=== PATIENT | female | born 1995 | race Asian ===

== ENCOUNTER 2019-07-10 10:11 | Inpatient (IN) | payer MEDICAID, OTHER ==
[~2019-07-10] VITALS: Ht 168.9 cm; Wt 84.2 kg
[2019-07-10] MEDS ORDERED: ESCI5SOL2 PO (11:14)
[2019-07-10] MEDS ORDERED: NAPR-1025 PO (11:14)
[2019-07-10] MEDS ORDERED: HYDR-3290 PO (11:14)
[2019-07-10] MEDS ORDERED: GABA-1181 PO (11:14)
[2019-07-10] MEDS ORDERED: NALT50TA6 PO (11:14)
[2019-07-10] MEDS ORDERED: PRAZ1 PO (11:14)
[2019-07-10] MEDS ORDERED: ESCI-8 PO (11:24)
[2019-07-10 11:34] LABS: BASOPHILS % (AUTO) 0.7 % (0.0-2.0); EOSINOPHILS % (AUTO) 1.7 % (1.0-6.0); HEMOGLOBIN 11.8 g/dL (12.0-16.0); LYMPHOCYTES # (AUTO) 1.7 K/uL (1.0-4.8); MEAN CORPUSCULAR HEMOGLOBIN 28.4 pg (26.0-34.0); MEAN CORPUSCULAR HGB CONC 33.7 G/dL (31.0-37.0); MEAN CORPUSCULAR VOLUME 84 fL (80-100); MONOCYTES # (AUTO) 0.4 K/uL (0.1-1.0); NEUTROPHILS # (AUTO) 2.9 K/uL (1.8-7.7); NEUTROPHILS % (AUTO) 55.6 % (40.0-70.0); PLATELET COUNT (AUTO) 196 K/uL (150-450); RED BLOOD CELL COUNT(AUTO) 4.15 MIL/uL (4.00-5.20)
[2019-07-10 11:42] LABS: ANION GAP 12 mmol/L (8-16); CALCIUM, TOTAL 8.6 mg/dL (8.8-10.5); CARBON DIOXIDE 24 mmol/L (22-29); CHLORIDE 103 mmol/L (98-107); CREATININE 0.85 mg/dL (0.60-1.30); GLOMERULAR FILTR. RATE CALC > 60 mL/min (>60); GLUCOSE,RANDOM 108 mg/dL (70-110); POTASSIUM 3.6 mmol/L (3.5-5.1); SODIUM SERUM 139 mmol/L (136-145); UREA NITROGEN, BLOOD 14 mg/dL (7-18)
[2019-07-10 11:48] LABS: ACETAMINOPHEN < 2 mcg/mL (10-30); ALANINE AMINOTRANSFERASE 15 U/L (12-78); ALKALINE PHOSPHATASE 71 U/L (46-116); ASPARTATE AMINOTRANSFERASE 11 U/L (15-37); BILIRUBIN,TOTAL 0.4 mg/dL (0.1-1.0); TOTAL PROTEIN, SERUM 7.2 g/dL (6.4-8.2)
[2019-07-10 11:55] LABS: AMPHET/METH SCREEN,URINE NEGATIVE (NEGATIVE); BARBITURATE SCREEN, URINE NEGATIVE (NEGATIVE); BENZODIAZEPINES SCREEN,URINE NEGATIVE (NEGATIVE); CANNABINOID SCREEN,URINE NEGATIVE (NEGATIVE); COCAINE SCREEN,URINE NEGATIVE (NEGATIVE); METHADONE SCREEN, URINE NEGATIVE (NEGATIVE); OPIATE SCREEN,URINE POSITIVE (NEGATIVE)
[2019-07-10 11:56] LABS: PHENCYCLIDINE SCREEN,URINE NEGATIVE (NEGATIVE)
[2019-07-10 12:02] LABS: SALICYLATE 1.1 mg/dL (2.8-20.0)
[2019-07-10] MEDS ORDERED: ZOLPIDEM TARTRATE 10 MG TABLET PO PRN (13:15)
[2019-07-10] MEDS ORDERED: HALOPERIDOL 5 MG TABLET PO PRN (13:15)
[2019-07-10] MEDS ORDERED: LORazepam 2 MG TABLET PO PRN (13:15)
[2019-07-10] MEDS ORDERED: PNEUMOCOCCAL VACCINE POLYVALENT 0.5 ML VIAL [PPSV23] IM ONE (17:00)
[2019-07-10] MEDS ORDERED: PETROLATUM,WHITE 28 GM JELLY TP PRN (17:45)
[2019-07-10] MEDS ORDERED: ONDANSETRON HCL 4 MG TABLET PO PRN (17:45)
[2019-07-10] MEDS ORDERED: ACETAMINOPHEN 325 MG TABLET PO PRN (17:45)
[2019-07-10] MEDS ORDERED: DOCUSATE SODIUM 100 MG CAPSULE PO PRN (17:45)
[2019-07-10] MEDS ORDERED: IBUPROFEN 400 MG TABLET PO PRN (17:45)
[2019-07-10] MEDS ORDERED: MAG HYDROX/AL HYDROX/SIMETH ES 30 ML SUSPENSION UDCUP PO PRN (17:45)
[2019-07-10] MEDS ORDERED: GuaiFENesin/D-METHORPHAN [SUGAR-FREE] 200-20MG/10 ML SYRUP UDCUP PO PRN (17:45)
[2019-07-10] MEDS ORDERED: MAGNESIUM HYDROXIDE SUSPENSION 30 ML UDCUP PO PRN (17:45)
[2019-07-10] MEDS ORDERED: ALBUTEROL SULFATE HFA 90 MCG/PUFF 8 GM INHALER IH PRN (17:45)
[2019-07-10] MEDS ORDERED: CloNIDine HCL 0.1 MG TABLET PO PRN (17:45)
[2019-07-10] MEDS ORDERED: NICOTINE 14 MG/24 HOUR PATCH TD PRN (17:45)
[2019-07-10] MEDS ORDERED: LOPERAMIDE HCL 2 MG CAPSULE PO PRN (17:45)
[2019-07-10 22:23] VITALS: BP 109/67
[2019-07-11 00:43] VITALS: BP 121/60
[2019-07-11 08:26] LABS: CHOL/HDL RATIO 4.3 (3.9-5.7)
[2019-07-11 09:15] VITALS: BP 122/69
[2019-07-11] MEDS: ESCITALOPRAM OXALATE 10 MG TABLET PO SCH (15:11)
[2019-07-11 16:00] VITALS: BP 122/67
[2019-07-11 20:09] VITALS: BP 124/82
[2019-07-11] MEDS: PRAZOSIN HCL 1 MG CAPSULE PO SCH (20:10)
[2019-07-12 00:28] VITALS: BP 136/77
[2019-07-12] MEDS: ESCITALOPRAM OXALATE 10 MG TABLET PO SCH (08:32)
[2019-07-12 08:43] LABS: FREE T4 (FREE THYROXINE) 1.08 ng/dL (0.76-1.46); THYROID STIMULATING HORMONE 1.31 uIU/mL (0.36-3.74)
[2019-07-12 16:10] VITALS: BP 130/78
[2019-07-12] MEDS: PRAZOSIN HCL 1 MG CAPSULE PO SCH (20:29)
[2019-07-13 01:21] VITALS: BP 131/82
[2019-07-13 08:04] VITALS: BP 118/71
[2019-07-13] MEDS: ESCITALOPRAM OXALATE 10 MG TABLET PO SCH (08:15)
[2019-07-13] MEDS ORDERED: PRAZ1 PO (11:44)
[2019-07-13] MEDS ORDERED: ESCI-8 PO (11:44)
== END 2019-07-13 13:30 | disposition home or self-care (01) | DRG 751 ==
LOC: EMS 10:12 → B2S 15:08
PROVIDERS: ADMIT Psychiatry & Neurology Child & Adolescent Psychiatry
PROC: 3E0234Z Introduction of Serum, Toxoid and Vaccine into Muscle, Percutaneous Approach (ICD-10-PCS; principal; 2019-07-10)
DX: F33.2 Major depressive disorder, recurrent severe without psychotic features (principal); D64.9 Anemia, unspecified; F41.9 Anxiety disorder, unspecified; F43.12 Post-traumatic stress disorder, chronic; M54.9 Dorsalgia, unspecified; Z91.5 Personal history of self-harm; Z81.8 Family history of other mental and behavioral disorders; I10 Essential (primary) hypertension; F10.10 Alcohol abuse, uncomplicated; Y90.9 Presence of alcohol in blood, level not specified; T50.992A Poisoning by other drugs, medicaments and biological substances, intentional self-harm, initial encounter; Y92.89 Other specified places as the place of occurrence of the external cause; Z79.899 Other long term (current) drug therapy
CPT/HCPCS: 84439; 84443; 90732; 93005; G0480; G0481

== ENCOUNTER 2020-03-18 20:27 | Inpatient (IN) | payer MEDICAID, OTHER ==
[~2020-03-18] VITALS: Ht 162.6 cm; Wt 90.8 kg
[~2020-03-18 20:27] MED LIST: ESCI-8 PO; PRAZ1 PO
[2020-03-18 21:21] LABS: BASOPHILS % (AUTO) 0.4 % (0.0-2.0); EOSINOPHILS % (AUTO) 1.4 % (1.0-6.0); HEMATOCRIT 36.8 % (36-46); HEMOGLOBIN 12.4 g/dL (12.0-16.0); LYMPHOCYTES # (AUTO) 1.6 K/uL (1.0-4.8); LYMPHOCYTES % (AUTO) 24.2 % (22.0-44.0); MEAN CORPUSCULAR HEMOGLOBIN 29.2 pg (26.0-34.0); MEAN CORPUSCULAR HGB CONC 33.7 G/dL (31.0-37.0); MEAN CORPUSCULAR VOLUME 87 fL (80-100); MONOCYTES # (AUTO) 0.4 K/uL (0.1-1.0); MONOCYTES % (AUTO) 6.4 % (2.0-9.0); NEUTROPHILS # (AUTO) 4.4 K/uL (1.8-7.7); NEUTROPHILS % (AUTO) 67.6 % (40.0-70.0); PLATELET COUNT (AUTO) 227 K/uL (150-450); RED BLOOD CELL COUNT(AUTO) 4.26 MIL/uL (4.00-5.20); RED CELL DISTRIBUTION WIDTH 13.2 % (11.5-14.5)
[2020-03-18 21:35] LABS: ANION GAP 7 mmol/L (8-16); CARBON DIOXIDE 25 mmol/L (22-29); CHLORIDE 107 mmol/L (98-107); CREATININE 0.88 mg/dL (0.60-1.30); GLOMERULAR FILTR. RATE CALC > 60 mL/min (>60); GLUCOSE,RANDOM 95 mg/dL (70-110); POTASSIUM 3.8 mmol/L (3.5-5.1); SODIUM SERUM 139 mmol/L (136-145); UREA NITROGEN, BLOOD 13 mg/dL (7-18)
[2020-03-18 21:47] LABS: ALANINE AMINOTRANSFERASE 18 U/L (12-78); ALBUMIN 3.8 g/dL (3.4-5.0); ALKALINE PHOSPHATASE 70 U/L (46-116); ASPARTATE AMINOTRANSFERASE 18 U/L (15-37); BILIRUBIN,TOTAL 0.5 mg/dL (0.1-1.0); HCG,QUANTITATIVE < 1 mIU/mL (0-6); TOTAL PROTEIN, SERUM 7.6 g/dL (6.4-8.2)
[2020-03-18 22:02] LABS: AMPHET/METH SCREEN,URINE NEGATIVE (NEGATIVE); BARBITURATE SCREEN, URINE NEGATIVE (NEGATIVE); BENZODIAZEPINES SCREEN,URINE NEGATIVE (NEGATIVE); CANNABINOID SCREEN,URINE NEGATIVE (NEGATIVE); COCAINE SCREEN,URINE NEGATIVE (NEGATIVE); METHADONE SCREEN, URINE NEGATIVE (NEGATIVE); OPIATE SCREEN,URINE NEGATIVE (NEGATIVE); PHENCYCLIDINE SCREEN,URINE NEGATIVE (NEGATIVE)
[2020-03-18 22:51] LABS: COVID AG,FIA SOURCE NASOPHARYNGEAL
[2020-03-18] MEDS ORDERED: LORazepam 1 MG TABLET PO PRN (23:45)
[2020-03-18] MEDS ORDERED: ZOLPIDEM TARTRATE 10 MG TABLET PO PRN (23:45)
[2020-03-18] MEDS ORDERED: HALOPERIDOL 5 MG TABLET PO PRN (23:45)
[2020-03-19 01:02] VITALS: BP 113/82
[2020-03-19] MEDS ORDERED: INFLUENZA VIRUS VACCINE QVS 2020-21 (6MO+)/PF 60 MCG/0.5 ML SYRINGE IM ONE (02:00)
[2020-03-19 07:50] LABS: CHOL/HDL RATIO 4.5 (3.9-5.7)
[2020-03-19 08:00] VITALS: BP 131/74
[2020-03-19] MEDS ORDERED: ACETAMINOPHEN 325 MG TABLET PO PRN (08:15)
[2020-03-19] MEDS ORDERED: NICOTINE 14 MG/24 HOUR PATCH TD PRN (08:15)
[2020-03-19] MEDS ORDERED: MAG HYDROX/AL HYDROX/SIMETH ES 30 ML SUSPENSION UDCUP PO PRN (08:15)
[2020-03-19] MEDS ORDERED: MAGNESIUM HYDROXIDE SUSPENSION 30 ML UDCUP PO PRN (08:15)
[2020-03-19] MEDS ORDERED: PETROLATUM,WHITE 28 GM JELLY TP PRN (08:15)
[2020-03-19] MEDS ORDERED: ONDANSETRON HCL 4 MG TABLET PO PRN (08:15)
[2020-03-19] MEDS ORDERED: CloNIDine HCL 0.1 MG TABLET PO PRN (08:15)
[2020-03-19] MEDS ORDERED: GuaiFENesin/D-METHORPHAN [SUGAR-FREE] 200-20MG/10 ML SYRUP UDCUP PO PRN (08:15)
[2020-03-19] MEDS ORDERED: LOPERAMIDE HCL 2 MG CAPSULE PO PRN (08:15)
[2020-03-19] MEDS ORDERED: ALBUTEROL SULFATE HFA 90 MCG/PUFF 8 GM INHALER IH PRN (08:15)
[2020-03-19] MEDS ORDERED: DOCUSATE SODIUM 100 MG CAPSULE PO PRN (08:15)
[2020-03-19] MEDS: ESCITALOPRAM OXALATE 10 MG TABLET PO SCH (10:06)
[2020-03-19 16:00] VITALS: BP 98/60
[2020-03-19] MEDS: PRAZOSIN HCL 1 MG CAPSULE PO SCH (21:10)
[2020-03-20 08:00] VITALS: BP 125/69
[2020-03-20] MEDS: ESCITALOPRAM OXALATE 10 MG TABLET PO SCH (09:19)
[2020-03-20 16:00] VITALS: BP 131/77
[2020-03-20] MEDS: PRAZOSIN HCL 1 MG CAPSULE PO SCH (20:00)
[2020-03-21 02:53] VITALS: BP 125/78
[2020-03-21 09:19] VITALS: BP 149/64
[2020-03-21] MEDS: ESCITALOPRAM OXALATE 10 MG TABLET PO SCH (09:54)
[2020-03-21 16:00] VITALS: BP 120/59
[2020-03-21] MEDS: IBUPROFEN 400 MG TABLET PO PRN (18:07)
[2020-03-21] MEDS: PRAZOSIN HCL 1 MG CAPSULE PO SCH (20:48)
[2020-03-22 08:30] VITALS: BP 125/57
[2020-03-22] MEDS: ESCITALOPRAM OXALATE 10 MG TABLET PO SCH (08:30)
[2020-03-22] MEDS: IBUPROFEN 400 MG TABLET PO PRN (08:34)
[2020-03-22 09:34] VITALS: BP 117/57
[2020-03-22] MEDS ORDERED: PRAZ1 PO (10:25)
[2020-03-22] MEDS ORDERED: ESCI10 PO (10:25)
== END 2020-03-22 13:30 | disposition home or self-care (01) | DRG 751 ==
LOC: EMS 20:30 → 3EI 23:00
PROVIDERS: ADMIT Psychiatry & Neurology Psychiatry; ATTEND Psychiatry & Neurology Psychiatry
DX: F33.2 Major depressive disorder, recurrent severe without psychotic features (principal); F43.12 Post-traumatic stress disorder, chronic; R45.851 Suicidal ideations; K21.9 Gastro-esophageal reflux disease without esophagitis; Z20.822 Contact with and (suspected) exposure to COVID-19; I10 Essential (primary) hypertension; E66.9 Obesity, unspecified; R00.0 Tachycardia, unspecified; F41.9 Anxiety disorder, unspecified; Z79.899 Other long term (current) drug therapy; Z23 Encounter for immunization; Z68.34 Body mass index [BMI] 34.0-34.9, adult
CPT/HCPCS: 80053; 80061; 84702; 85025; 90686; 99285; G0480

== ENCOUNTER 2020-09-16 10:11 | Inpatient (IN) | payer MEDICAID, OTHER ==
[~2020-09-16] VITALS: Ht 162.6 cm; Wt 92.5 kg
[~2020-09-16 10:11] MED LIST changes: -ESCI-8 PO; +ESCI10 PO
[2020-09-16] MEDS ORDERED: FAMO20 PO (10:18)
[2020-09-16] MEDS ORDERED: PAIN MED OD (10:18)
[2020-09-16 10:49] LABS: BASOPHILS % (AUTO) 0.4 % (0.0-2.0); EOSINOPHILS % (AUTO) 1.8 % (1.0-6.0); HEMOGLOBIN 13.1 g/dL (12.0-16.0); LYMPHOCYTES # (AUTO) 1.4 K/uL (1.0-4.8); LYMPHOCYTES % (AUTO) 25.9 % (22.0-44.0); MEAN CORPUSCULAR HEMOGLOBIN 28.6 pg (26.0-34.0); MEAN CORPUSCULAR HGB CONC 33.6 G/dL (31.0-37.0); MEAN CORPUSCULAR VOLUME 85 fL (80-100); MONOCYTES # (AUTO) 0.3 K/uL (0.1-1.0); MONOCYTES % (AUTO) 5.7 % (2.0-9.0); NEUTROPHILS # (AUTO) 3.6 K/uL (1.8-7.7); NEUTROPHILS % (AUTO) 66.2 % (40.0-70.0); PLATELET COUNT (AUTO) 237 K/uL (150-450); RED BLOOD CELL COUNT(AUTO) 4.58 MIL/uL (4.00-5.20); RED CELL DISTRIBUTION WIDTH 14.7 % (11.5-14.5)
[2020-09-16 10:59] LABS: AMPHET/METH SCREEN,URINE NEGATIVE (NEGATIVE); BARBITURATE SCREEN, URINE NEGATIVE (NEGATIVE); BENZODIAZEPINES SCREEN,URINE NEGATIVE (NEGATIVE); CANNABINOID SCREEN,URINE NEGATIVE (NEGATIVE); COCAINE SCREEN,URINE NEGATIVE (NEGATIVE); METHADONE SCREEN, URINE NEGATIVE (NEGATIVE); OPIATE SCREEN,URINE NEGATIVE (NEGATIVE)
[2020-09-16 11:01] LABS: PHENCYCLIDINE SCREEN,URINE NEGATIVE (NEGATIVE)
[2020-09-16 11:02] LABS: ANION GAP 8 mmol/L (8-16); CALCIUM, TOTAL 8.9 mg/dL (8.8-10.5); CARBON DIOXIDE 27 mmol/L (22-29); CHLORIDE 102 mmol/L (98-107); CREATININE 0.88 mg/dL (0.60-1.30); GLOMERULAR FILTR. RATE CALC > 60 mL/min (>60); GLUCOSE,RANDOM 92 mg/dL (70-110); POTASSIUM 3.8 mmol/L (3.5-5.1); SODIUM SERUM 137 mmol/L (136-145); UREA NITROGEN, BLOOD 12 mg/dL (7-18)
[2020-09-16 11:13] LABS: ALANINE AMINOTRANSFERASE 24 U/L (12-78); ALBUMIN 3.8 g/dL (3.4-5.0); ALKALINE PHOSPHATASE 75 U/L (46-116); ASPARTATE AMINOTRANSFERASE 19 U/L (15-37); BILIRUBIN,TOTAL 0.4 mg/dL (0.1-1.0); HCG,QUANTITATIVE < 1 mIU/mL (0-6); TOTAL PROTEIN, SERUM 8.1 g/dL (6.4-8.2)
[2020-09-16] MEDS ORDERED: HALOPERIDOL 5 MG TABLET PO PRN (11:45)
[2020-09-16 14:26] LABS: COVID AG,FIA SOURCE NASOPHARYNGEAL
[2020-09-16 16:37] VITALS: BP 130/89
[2020-09-17] MEDS ORDERED: LOPERAMIDE HCL 2 MG CAPSULE PO PRN (07:45)
[2020-09-17] MEDS ORDERED: GuaiFENesin/D-METHORPHAN [SUGAR-FREE] 200-20MG/10 ML SYRUP UDCUP PO PRN (07:45)
[2020-09-17] MEDS ORDERED: ALBUTEROL SULFATE HFA 90 MCG/PUFF 8 GM INHALER IH PRN (07:45)
[2020-09-17] MEDS ORDERED: DOCUSATE SODIUM 100 MG CAPSULE PO PRN (07:45)
[2020-09-17] MEDS ORDERED: MAG HYDROX/AL HYDROX/SIMETH ES 30 ML SUSPENSION UDCUP PO PRN (07:45)
[2020-09-17] MEDS ORDERED: MAGNESIUM HYDROXIDE SUSPENSION 30 ML UDCUP PO PRN (07:45)
[2020-09-17] MEDS ORDERED: PETROLATUM,WHITE 28 GM JELLY TP PRN (07:45)
[2020-09-17] MEDS ORDERED: CloNIDine HCL 0.1 MG TABLET PO PRN (07:45)
[2020-09-17 08:00] VITALS: BP 115/61
[2020-09-17] MEDS ORDERED: NICOTINE 14 MG/24 HOUR PATCH TD ONE (09:00)
[2020-09-17] MEDS: ESCITALOPRAM OXALATE 10 MG TABLET PO SCH (11:39)
[2020-09-17] MEDS: ONDANSETRON HCL 4 MG TABLET PO PRN ×2 (13:19→17:49)
[2020-09-17 16:16] VITALS: BP 125/75
[2020-09-17] MEDS: PRAZOSIN HCL 1 MG CAPSULE PO SCH (21:26)
[2020-09-17] MEDS: ZOLPIDEM TARTRATE 10 MG TABLET PO PRN (21:26)
[2020-09-18] MEDS: ESCITALOPRAM OXALATE 10 MG TABLET PO SCH (08:36)
[2020-09-18 09:43] VITALS: BP 122/67
[2020-09-18] MEDS: IBUPROFEN 400 MG TABLET PO PRN (09:55)
[2020-09-18] MEDS: NICOTINE 14 MG/24 HOUR PATCH TD PRN (13:11)
[2020-09-18 16:12] VITALS: BP 120/66
[2020-09-18] MEDS: LORazepam 1 MG TABLET PO PRN (17:13)
[2020-09-18] MEDS: PRAZOSIN HCL 1 MG CAPSULE PO SCH (21:18)
[2020-09-18] MEDS: ZOLPIDEM TARTRATE 10 MG TABLET PO PRN (21:18)
[2020-09-19 04:47] VITALS: BP 126/81
[2020-09-19] MEDS: IBUPROFEN 400 MG TABLET PO PRN ×2 (04:47→13:00)
[2020-09-19] MEDS: ESCITALOPRAM OXALATE 10 MG TABLET PO SCH (08:12)
[2020-09-19 08:58] VITALS: BP 132/79
[2020-09-19] MEDS: ACETAMINOPHEN 325 MG TABLET PO PRN (12:15)
[2020-09-19] MEDS: NICOTINE 14 MG/24 HOUR PATCH TD PRN (13:01)
[2020-09-19 19:31] VITALS: BP 135/75
[2020-09-19] MEDS: LORazepam 1 MG TABLET PO PRN (21:04)
[2020-09-19] MEDS: PRAZOSIN HCL 1 MG CAPSULE PO SCH (21:04)
[2020-09-20] MEDS: ESCITALOPRAM OXALATE 10 MG TABLET PO SCH (09:31)
[2020-09-20 09:33] VITALS: BP 119/71
[2020-09-20 10:00] VITALS: BP 149/86
[2020-09-20] MEDS: ACETAMINOPHEN 325 MG TABLET PO PRN (10:02)
[2020-09-20 11:00] VITALS: BP 140/72
[2020-09-20] MEDS: ONDANSETRON HCL 4 MG TABLET PO PRN (12:02)
[2020-09-20 16:07] VITALS: BP 140/83
[2020-09-20] MEDS: PRAZOSIN HCL 1 MG CAPSULE PO SCH (20:11)
[2020-09-21 03:57] VITALS: BP 135/84
[2020-09-21] MEDS: ESCITALOPRAM OXALATE 10 MG TABLET PO SCH (08:06)
[2020-09-21] MEDS: NICOTINE 14 MG/24 HOUR PATCH TD PRN (09:03)
[2020-09-21 10:33] VITALS: BP 125/73
[2020-09-21 14:15] VITALS: BP 140/82
[2020-09-21] MEDS: IBUPROFEN 400 MG TABLET PO PRN (14:29)
[2020-09-21 15:23] VITALS: BP 122/74
[2020-09-21] MEDS: ONDANSETRON HCL 4 MG TABLET PO PRN (16:04)
[2020-09-21 16:35] VITALS: BP 138/91
[2020-09-21 20:49] VITALS: BP 135/79
[2020-09-21] MEDS: PRAZOSIN HCL 1 MG CAPSULE PO SCH (20:51)
[2020-09-21] MEDS: ZOLPIDEM TARTRATE 10 MG TABLET PO PRN (20:54)
[2020-09-22 04:53] VITALS: BP 135/92
[2020-09-22] MEDS: ESCITALOPRAM OXALATE 10 MG TABLET PO SCH (08:21)
[2020-09-22 08:24] VITALS: BP 146/93
[2020-09-22] MEDS ORDERED: PRAZ1 PO (10:59)
[2020-09-22] MEDS ORDERED: ESCI10 PO (10:59)
== END 2020-09-22 17:30 | disposition home or self-care (01) | DRG 751 ==
LOC: EMS 10:18 → 3EI 15:06
DX: F33.2 Major depressive disorder, recurrent severe without psychotic features (principal); R45.851 Suicidal ideations; F41.9 Anxiety disorder, unspecified; Z79.899 Other long term (current) drug therapy; Z59.0 Homelessness; K21.9 Gastro-esophageal reflux disease without esophagitis; F43.12 Post-traumatic stress disorder, chronic; G89.29 Other chronic pain; M54.9 Dorsalgia, unspecified; Z20.822 Contact with and (suspected) exposure to COVID-19; E66.9 Obesity, unspecified; M62.838 Other muscle spasm
CPT/HCPCS: 80053; 84702; 85025; 99285; G0480; Q0162